=== PATIENT | male | born 1975 | race Two or more races ===

== ENCOUNTER 2017-09-06 06:46 | Emergency (ER) | payer BC, OTHER ==
[2017-09-06 07:02] VITALS: TEMP 98.9; BMI 32.1
--- NOTE | 2017-09-06 07:29 | PDOC ---
History of Present Illness - General Chief Complaint: Sore Throat Stated Complaint: S.O.B. Time Seen by Provider: 09/06/17 07:15 History Source: Patient Exam Limitations: No Limitations - History of Present Illness Initial Comments: 09/06/17 07:25 The patient is a 41M with a PMH of HTN who presents with 12 hours onset of a sore throat. The patient states that he felt a "tingle" in his throat last night , drank hot water with lemon and fell asleep. When he woke up this morning he felt a very sore throat and difficulty breathing. When he looked in the mirror he saw that his throat was enlarged and he became fearful and came to the hospital. He hasn't taken any medications for his sore throat. He denies fever, chills, cough, runny nose, myalgias, cough. He has positive sick contacts at work (department of [employer]). He states that he is up to date on all his vaccinations. Past History - Past Medical History Allergies/Adverse Reactions: Allergies Allergy/AdvReac Type Severity Reaction Status Date / Time Fish Containing Products Allergy Verified 09/06/17 06:59 seafood Allergy Uncoded 09/06/17 06:59 Home Medications: Ambulatory Orders Amlodipine Besylate/Benazepril [Lotrel 5-40 mg Capsule] 1 each PO DAILY Ibuprofen [Motrin -] 800 mg PO TID PRN #20 tablet 09/15/15 Amoxicillin - [Amoxicillin 500mg Capsule -] 500 mg PO BID #19 capsule MDD 2 10/23 HTN: Yes - Suicide/Smoking/Psychosocial Hx Smoking History: Never smoked Have you smoked in the past 12 months: No Information on smoking cessation initiated: No Hx Alcohol Use: No Drug/Substance Use Hx: No Review of Systems - Review of Systems Able to Perform ROS?: Yes Comments:: 09/06/17 07:29 GENERAL/CONSTITUTIONAL: No fever or chills. No weakness. HEAD, EYES, EARS, NOSE AND THROAT: Positive for sore throat, enlarged uvula. No change in vision. No ear pain or discharge. GASTROINTESTINAL: No nausea, vomiting, diarrhea, constipation, or abdominal pain. GENITOURINARY: No dysuria, frequency, hematuria, or change in urination. CARDIOVASCULAR: No chest pain, palpitations, or lightheadedness. RESPIRATORY: No cough, wheezing, shortness of breath, or hemoptysis. MUSCULOSKELETAL: No joint or muscle swelling or pain. No neck or back pain. SKIN: No rash or lesions. NEUROLOGIC: No headache, numbness, tingling, weakness, loss of consciousness, or change in strength/sensation. ENDOCRINE: No increased thirst. No abnormal weight change. HEMATOLOGIC/LYMPHATIC: No anemia, easy bleeding, or history of blood clots. ALLERGIC/IMMUNOLOGIC: No hives or skin allergy. Is the patient limited Italian proficient: No *Physical Exam - Vital Signs Last Vital Signs Temp Pulse Resp BP Pulse Ox 98.9 F 70 20 150/102 99 09/06/17 06:59 09/06/17 06:59 09/06/17 06:59 09/06/17 06:59 09/06/17 06:59 - Physical Exam Comments: 09/06/17 07:53 GENERAL: Well developed, well nourished. Awake and alert. No acute distress. HEENT: Normocephalic, atraumatic. Hearing grossly normal. Moist mucous membranes. Enlarged uvula, erythematous pharynx. NECK: Supple. Full ROM. No JVD. No lymphadenopathy. CARDIOVASCULAR: Regular rate and rhythm. No murmurs, rubs, or gallops. PULMONARY: No evidence of respiratory distress. Lungs clear to auscultation bilaterally. No wheezing, rales or rhonchi. ABDOMINAL: Soft. Non-tender. Non-distended. No rebound or guarding. No organomegaly. Normoactive bowel sounds. MUSCULOSKELETAL: Normal range of motion at all joints. No bony deformities or tenderness. EXTREMITIES: No cyanosis. No clubbing. No edema. No calf tenderness. SKIN: Warm and dry. Normal capillary refill. No rashes. No jaundice. NEUROLOGICAL: Alert, awake, appropriate. Cranial nerves 2-12 intact. Normal speech. Gait is normal without ataxia. PSYCHIATRIC: Cooperative. Good eye contact. Appropriate mood and affect. Medical Decision Making - Medical Decision Making 09/06/17 07:53 The patient is a 41M with a PMH of HTN who presents with 12 hours of sore throat. He has an enlarged uvula and denies any other symptoms. I have high suspicion for uvulitis 2/2 GAS. I have sent a strep swab and will treat empirically with abx, steroids, and motrin. Patient agrees and will be d/c after meds are given. 09/06/17 08:28 GAS swab negative. Abx sent to pt pharmacy. Pt will be d/c. *DC/Admit/Observation/Transfer Diagnosis at time of Disposition: Uvulitis - Discharge Dispostion Disposition: HOME Condition at time of disposition: Stable Admit: No - Prescriptions Prescriptions: Amoxicillin - [Amoxicillin 500mg Capsule -] 500 mg PO BID #19 capsule MDD 2 - Referrals - Patient Instructions Printed Discharge Instructions: Strep Throat Additional Instructions: Please return to the ER if symptoms persist, worsen, or new symptoms arise. Please follow up with your primary care physician in 2-3 days. Please return to the ER if you have any signs or symptoms of chest pain, shortness of breath, uncontrollable fever, chills, nausea, vomiting, numbness, tingling, or weakness in any part of your body, changes in vision, or slurred speech. Please take your medications as prescribed. Print Language: PUERTO RICAN - Post Discharge Activity
[2017-09-06] MEDS ORDERED: AMOXICILLIN 500 MG CAPSULE (FP) PO ONE (07:47)
[2017-09-06] MEDS ORDERED: AMOXICILLIN 500 MG CAPSULE (FP) ONE (07:50)
[2017-09-06] MEDS ORDERED: DEXAMETHASONE 4 MG TABLET (FP) PO ONE (07:50)
[2017-09-06] MEDS ORDERED: IBUPROFEN 600 MG TABLET (FP) PO ONE ×3 (07:51→07:55)
[2017-09-06] MEDS ORDERED: DEXAMETHASONE SOD PHOSPHATE 10 MG/1 ML VIAL ONE (07:53)
--- NOTE | 2017-09-06 08:18 | PDOC ---
Attending Attestation - Resident Resident Name: Jerry Iqbal - ED Attending Attestation I have performed the following: I have examined & evaluated the patient, The case was reviewed & discussed with the resident, I agree w/resident's findings & plan, Exceptions are as noted - HPI HPI: 09/06/17 08:15 Healthy 41-year-old male presents with discomfort in the back of his throat for the last day, no fevers or chills, no difficulty swallowing or breathing or speaking, no recent URIs. Nonsmoker, ALLERGIC to fish but has not had any exposure, does have a history of throat infections. - Physicial Exam PE: 09/06/17 08:16 Afebrile, vital signs normal. Well-appearing seated in stretcher Speaking clearly, no hoarse voice or stridor, no difficulty breathing Positive uvulitis with edema, no pharyngeal erythema or exudate or edema No lymphadenopathy, trachea midline, no stridor Remainder of exam is normal - Medical Decision Making 09/06/17 08:17 Patient seen and evaluated with the resident. I agree with the overall evaluation, assessment, and management with the following summary of visit: 41-year-old male with uvulitis, airway intact and well-appearing. Will dose Decadron, NSAIDs as needed Antibiotic course Discharge with return precautions
[2017-09-06 09:34] VITALS: BP 150/88; PULSE 68
== END 2017-09-06 09:35 | disposition home or self-care (01) ==
LOC: JER 06:46
DX: K12.2 Cellulitis and abscess of mouth (principal)
CPT/HCPCS: 87070; 87077; 87430; 99283-25

== ENCOUNTER 2021-12-09 07:58 | Day surgery (SDC) | payer BC, OTHER ==
[2021-12-07 15:14] VITALS: BMI 32.1
[2021-12-09 09:28] VITALS: BP 128/78; PULSE 70; TEMP 97.8
== END 2021-12-09 09:48 | disposition home or self-care (01) ==
LOC: FASU-ENDO 07:58
PROVIDERS: ATTEND Internal Medicine Gastroenterology
PROC: 0DB68ZX Excision of Stomach, Via Natural or Artificial Opening Endoscopic, Diagnostic (ICD-10-PCS; 2021-12-09)
PROC: 0DB98ZX Excision of Duodenum, Via Natural or Artificial Opening Endoscopic, Diagnostic (ICD-10-PCS; principal; 2021-12-09 09:01)
DX: K29.50 Unspecified chronic gastritis without bleeding (principal); R10.11 Right upper quadrant pain
CPT/HCPCS: 88305-TC; 88342-TC